=== PATIENT | male | born 1955 | race Caucasian/White ===

== ENCOUNTER 2017-09-24 08:02 | Inpatient (IN) | payer OTHER ==
[2017-09-24] MEDS: INSULIN REGULAR, HUMAN 100 UNIT/1 ML 3ML VIAL SC (09:44)
[2017-09-24] MEDS: LACTATED RINGER'S 1,000 ML (ENTER RATE) IV* (10:00)
[2017-09-24] MEDS: CEFAZOLIN 2 GM/50 ML (PMX) 50 ML IVPB (10:00)
[2017-09-24 10:09] LABS: INR 0.96; PROTIME 12.9 Sec (11.9-14.9)
[2017-09-24 10:10] LABS: PARTIAL THROMBOPLASTIN TIME 30.1 Sec (25.0-35.0)
[2017-09-24] MEDS ORDERED: PROPOFOL 20 ML (11:30)
[2017-09-24] MEDS ORDERED: MIDAZOLAM 1 MG/ML 2 ML INJ (11:30)
[2017-09-24] MEDS ORDERED: SUCCINYLCHOLINE CHLORIDE 100 MG/5 ML SYG IV (11:30)
[2017-09-24] MEDS ORDERED: LIDOCAINE 2% (SDV) 5 ML INJ (11:30)
[2017-09-24] MEDS ORDERED: ROCURONIUM 50 MG INJ ×2 (11:30→13:18)
[2017-09-24] MEDS ORDERED: CEFAZOLIN 1 GM INJ (13:04)
[2017-09-24] MEDS ORDERED: DEXAMETHASONE 4 MG/ML 1 ML INJ (13:04)
[2017-09-24] MEDS ORDERED: ONDANSETRON 4 MG INJ (13:04)
[2017-09-24] MEDS ORDERED: METOCLOPRAMIDE 10 MG INJ (13:04)
[2017-09-24] MEDS ORDERED: FAMOTIDINE 20 MG INJ (13:04)
[2017-09-24] MEDS ORDERED: SCOPOLAMINE 1.5 MG PATCH (13:04)
[2017-09-24] MEDS: GELATIN SIZE 100 SPONGE (13:28)
[2017-09-24] MEDS: THROMBIN 5000 UNIT VIAL (13:28)
[2017-09-24] MEDS: POLYMYXIN/BACITRACIN 1L IRRIG (13:28)
[2017-09-24] MEDS ORDERED: PROVENTIL HFA 6.7GM INHALER (13:40)
[2017-09-24] MEDS: BUPIVACAINE 0.5%/EPI 1:200,000 50 ML (MDV) INJ (16:19)
[2017-09-24] MEDS ORDERED: SUGAMMADEX SODIUM 200 MG/2 ML VIAL IV (16:19)
[2017-09-24] MEDS: SOD CHLORIDE 0.45% 1,000 ML IV (16:50)
[2017-09-24] MEDS ORDERED: DIPHENHYDRAMINE 50 MG INJ IV (17:00)
[2017-09-24] MEDS ORDERED: HYDROmorphONE (0.2 MG/ML) 10ML SYG IV (17:00)
[2017-09-24] MEDS ORDERED: NALOXONE (0.4 MG/ML) INJ IV (17:00)
[2017-09-24] MEDS ORDERED: ONDANSETRON 4 MG INJ IV (17:00)
[2017-09-24] MEDS ORDERED: LABETALOL HCL 20MG INJ IV (17:00)
[2017-09-24] MEDS ORDERED: hydrALAzine 20 MG INJ IV (17:00)
[2017-09-24] MEDS ORDERED: NACL 0.9% 3 ML SYG IV (17:00)
[2017-09-24] MEDS ORDERED: METOCLOPRAMIDE 10 MG INJ IV (17:00)
[2017-09-24] MEDS ORDERED: FLUMAZENIL 0.5 MG INJ (17:03)
[2017-09-24] MEDS: HYDROmorphONE (0.2 MG/ML) 10ML SYG IV ×2 (17:43→17:51)
[2017-09-24] MEDS: ONDANSETRON 4 MG INJ IV (17:43)
[2017-09-24] MEDS: HYDROmorphONE 0.2 MG/ML PCA IV (17:57)
[2017-09-24] MEDS ORDERED: GLUCAGON 1 MG INJ IM (18:00)
[2017-09-24] MEDS ORDERED: GLUCOSE GEL 15 GRAM TUBE BUCCAL (18:00)
[2017-09-24] MEDS ORDERED: DEXTROSE 50% 50 ML SYRINGE IV ×2 (18:00)
[2017-09-24] MEDS ORDERED: GLUCOSE GEL 15 GRAM TUBE PO ×2 (18:00)
[2017-09-24] MEDS: INSULIN ASPART [NOVOLOG] 3 ML PEN SC ×2 (18:00→21:00)
[2017-09-24] MEDS: SOD CHLORIDE 0.9% 1,000 ML IV (18:19)
[2017-09-25 05:19] LABS: ADD MAN DIFF? NO
[2017-09-25 05:21] LABS: BASOPHILS % 0.2 % (0.0-2.0); HEMATOCRIT 34.1 % (42.0-52.0); HEMOGLOBIN 11.8 g/dl (14.0-18.0); LYMPHOCYTES # 2.5 10^3/ul (0.8-2.9); LYMPHOCYTES % 21.7 % (15.0-51.0); MEAN CORPUSCULAR HEMOGLOBIN 30.6 pg (29.0-33.0); MEAN CORPUSCULAR HGB CONC 34.6 g/dl (32.0-37.0); MEAN CORPUSCULAR VOLUME 88.3 fl (82.0-101.0); MEAN PLATELET VOLUME 11.3 fl (7.4-10.4); MONOCYTES % 8.2 % (0.0-11.0); NEUTROPHIL # 8.1 10^3/ul (1.6-7.5); NEUTROPHILS % 69.6 % (39.0-77.0); PLATELET COUNT 149 10^3/UL (140-415); RED BLOOD COUNT 3.86 10^6/ul (4.70-6.10); RED CELL DISTRIBUTION WIDTH 12.7 % (11.5-14.5)
[2017-09-25 05:21] LABS: WHITE BLOOD COUNT 11.6 10^3/ul (4.8-10.8)
[2017-09-25 05:53] LABS: ANION GAP 16 (8-16); BLOOD UREA NITROGEN 19 mg/dl (7-20); CALCIUM 9.4 mg/dl (8.4-10.2); CARBON DIOXIDE 28 mmol/L (21-31); CHLORIDE 102 mmol/L (97-110); GLUCOSE 171 mg/dl (70-220); POTASSIUM 3.9 mmol/L (3.5-5.1); SODIUM 142 mmol/L (135-144)
[2017-09-25] MEDS: DOCUSATE SODIUM 100 MG CAP PO ×2 (08:14→20:29)
[2017-09-25] MEDS: HYDROCODONE/APAP (5/325) TAB PO ×2 (08:14→20:29)
[2017-09-25] MEDS: INSULIN ASPART [NOVOLOG] 3 ML PEN SC ×4 (08:51→20:34)
[2017-09-25] MEDS: LACTATED RINGER'S 1,000 ML (ENTER RATE) IV* (10:00)
[2017-09-25] MEDS ORDERED: ACETAMINOPHEN 325 MG TAB PO (16:00)
[2017-09-26] MEDS: HYDROCODONE/APAP (5/325) TAB PO ×3 (08:58→18:04)
[2017-09-26] MEDS: metFORMIN 850 MG TAB NGT ×2 (08:58→17:36)
[2017-09-26] MEDS: DOCUSATE SODIUM 100 MG CAP PO ×2 (08:58→20:08)
[2017-09-26] MEDS: INSULIN ASPART [NOVOLOG] 3 ML PEN SC ×4 (08:59→20:16)
[2017-09-26] MEDS: LACTATED RINGER'S 1,000 ML (ENTER RATE) IV* (10:00)
[2017-09-26] MEDS: SILVER SULFADIAZINE 1% 25 GM CR TOP ×2 (12:00→15:51)
[2017-09-27] MEDS: SILVER SULFADIAZINE 1% 25 GM CR TOP (09:00)
[2017-09-27] MEDS: DOCUSATE SODIUM 100 MG CAP PO (09:11)
[2017-09-27] MEDS: metFORMIN 850 MG TAB NGT (09:11)
[2017-09-27] MEDS: INSULIN ASPART [NOVOLOG] 3 ML PEN SC ×2 (09:13→12:52)
[2017-09-27] MEDS: LACTATED RINGER'S 1,000 ML (ENTER RATE) IV* (10:00)
== END 2017-09-27 15:30 | disposition home or self-care (01) | DRG 517 ==
LOC: SDS 08:02 → MS1 09-27 06:13 → SDS 08:02 → REC 16:58 → MS1 18:10
PROVIDERS: Specialist
PROC: 01NB0ZZ Release Lumbar Nerve, Open Approach (ICD-10-PCS; principal; 2017-09-24 07:00)
DX: M48.062 Spinal stenosis, lumbar region with neurogenic claudication (principal); E11.9 Type 2 diabetes mellitus without complications; I10 Essential (primary) hypertension; E78.2 Mixed hyperlipidemia
CPT/HCPCS: 72100; 80048; 82962; 85025; 85610; 85730; 86850; 86900; 86901; 97110; 97116; 97161